=== PATIENT | male | born 1975 | race Two or more races ===

== ENCOUNTER 2018-06-14 11:52 | Emergency (ER) | payer OTHER ==
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
[2018-06-14 16:19] VITALS: BP 135/99
== END 2018-06-14 15:34 | disposition home or self-care (01) ==
LOC: ER 11:52
DX: S39.012A Strain of muscle, fascia and tendon of lower back, initial encounter (principal); M23.92 Unspecified internal derangement of left knee; M54.2 Cervicalgia; M62.838 Other muscle spasm; V40.5XXA Car driver injured in collision with pedestrian or animal in traffic accident, initial encounter; G43.909 Migraine, unspecified, not intractable, without status migrainosus
CPT/HCPCS: 99284; 72040; 73564; 72110; 73590; L1830